=== PATIENT | female | born 1960 | race Caucasian/White ===

== ENCOUNTER 2018-08-18 05:18 | Inpatient (IN) | payer OTHER ==
[2018-08-18] MEDS ORDERED: TRANEXAMIC ACID 1GM/100ML(PMX) 100 ML INTRA-OP X1 IVPB (06:00)
[2018-08-18] MEDS ORDERED: ACETAMINOPHEN 500 MG TAB PO (06:00)
[2018-08-18] MEDS ORDERED: CEFAZOLIN 1 GM/50 ML (PMX) 50 ML IVPB (06:00)
[2018-08-18] MEDS ORDERED: DEXAMETHASONE 4 MG/ML 1 ML INJ IV (06:00)
[2018-08-18] MEDS ORDERED: TRANEXAMIC ACID 1GM/100ML(PMX) 100 ML PRE-OP X1 IVPB (06:00)
[2018-08-18] MEDS: LANSOPRAZOLE 30 MG CAP PO (06:28)
[2018-08-18] MEDS: oxyCODONE (CR) 10 MG TAB [oxyCONTIN] PO (06:29)
[2018-08-18] MEDS: ONDANSETRON 4 MG INJ IV ×4 (06:29→22:27)
[2018-08-18] MEDS: LACTATED RINGER'S 1,000 ML IV (06:30)
[2018-08-18] MEDS ORDERED: ACETAMINOPHEN 1000MG/100ML IV 100 ML IVPB (06:30)
[2018-08-18] MEDS ORDERED: HIP PAIN COCKTAIL VANCO INJ (07:00)
[2018-08-18] MEDS ORDERED: POLYMYXIN B 500000 UNIT INJ (07:11)
[2018-08-18] MEDS ORDERED: MIDAZOLAM 1 MG/ML 2 ML INJ (07:23)
[2018-08-18] MEDS ORDERED: DEXAMETHASONE 4 MG/ML 5 ML INJ (07:23)
[2018-08-18] MEDS ORDERED: GLYCOPYRROLATE 0.4 MG INJ (07:23)
[2018-08-18] MEDS ORDERED: FENTAnyl 50 MCG/ML VIAL (07:23)
[2018-08-18] MEDS ORDERED: PROPOFOL 20 ML (07:23)
[2018-08-18] MEDS ORDERED: ROCURONIUM 50 MG INJ (07:23)
[2018-08-18] MEDS ORDERED: NEOSTIGMINE 3 MG/3 ML SYRINGE (07:23)
[2018-08-18] MEDS ORDERED: CEFAZOLIN 1 GM INJ (07:23)
[2018-08-18] MEDS ORDERED: ONDANSETRON 4 MG INJ (07:23)
[2018-08-18] MEDS ORDERED: morphine SULFATE/PF (10 MG/10 ML) INJ (07:24)
[2018-08-18] MEDS ORDERED: HYDROmorphONE 0.5 MG/0.5 ML SYG IV ×2 (07:30)
[2018-08-18] MEDS ORDERED: DIPHENHYDRAMINE 50 MG INJ IV (07:30)
[2018-08-18] MEDS ORDERED: LABETALOL HCL 20MG INJ IV (07:30)
[2018-08-18] MEDS ORDERED: KETOROLAC 30 MG INJ IV (07:30)
[2018-08-18] MEDS ORDERED: ALBUTEROL 0.083% (NEB) 2.5 MG/3 ML AMP HHN (07:30)
[2018-08-18] MEDS ORDERED: TRIMETHOBENZAMIDE 100 MG/ML VIAL IM ×2 (07:30)
[2018-08-18] MEDS ORDERED: EPHEDrine 25 MG/5 ML SYG IV (07:30)
[2018-08-18] MEDS ORDERED: ONDANSETRON 4 MG INJ IV ×2 (07:30)
[2018-08-18] MEDS ORDERED: IPRATROPIUM (NEB) 0.5 MG/2.5 ML AMP HHN (07:30)
[2018-08-18] MEDS ORDERED: FENTAnyl 50 MCG/ML VIAL IV ×3 (07:30)
[2018-08-18] MEDS ORDERED: hydrALAzine 20 MG INJ IV (07:30)
[2018-08-18] MEDS ORDERED: ZOLPIDEM 5 MG TAB PO (07:30)
[2018-08-18] MEDS ORDERED: NALBUPHINE HCL (10 MG/1 ML) INJ IV (07:30)
[2018-08-18] MEDS ORDERED: HYDROmorphONE 1 MG/5 ML IV SYRINGE IV ×3 (07:30)
[2018-08-18] MEDS ORDERED: MEPERIDINE 25 MG INJ IV (07:30)
[2018-08-18] MEDS ORDERED: OXYCODONE/ACETAMINOPHEN (5/325) TAB PO ×2 (07:30)
[2018-08-18] MEDS ORDERED: NALOXONE (0.4 MG/ML) INJ IV ×2 (07:30→11:00)
[2018-08-18] MEDS ORDERED: MIDAZOLAM 1 MG/ML 2 ML INJ IV (07:30)
[2018-08-18] MEDS: POLYMYXIN B 500000 UNIT INJ IRR (08:27)
[2018-08-18] MEDS: BACITRACIN 50000 UNITS INJ (08:27)
[2018-08-18] MEDS ORDERED: MAGNESIUM HYDROXIDE 30ML CUP PO (11:00)
[2018-08-18] MEDS ORDERED: NA PHOSPHATE/BIPHOS 133 ML ENEMA PR (11:00)
[2018-08-18] MEDS ORDERED: SENNA/DOCUSATE NA (8.6MG/50MG) TAB PO (11:00)
[2018-08-18] MEDS ORDERED: NACL 0.9% 3 ML SYG IV (11:00)
[2018-08-18] MEDS ORDERED: BISACODYL 10 MG SUPP PR (11:00)
[2018-08-18] MEDS: DIPHENHYDRAMINE 50 MG INJ IV (11:10)
[2018-08-18] MEDS: ASPIRIN 81 MG TAB PO ×2 (11:10→21:37)
[2018-08-18] MEDS: CEFAZOLIN 2 GM/50 ML (PMX) 50 ML IVPB ×2 (11:10→18:34)
[2018-08-18] MEDS: DOCUSATE SODIUM 100 MG CAP PO (11:30)
[2018-08-18] MEDS: GABAPENTIN 100 MG CAP PO ×2 (14:22→21:37)
[2018-08-19] MEDS: CEFAZOLIN 2 GM/50 ML (PMX) 50 ML IVPB (02:52)
[2018-08-19] MEDS: ONDANSETRON 4 MG INJ IV (04:21)
[2018-08-19 05:25] LABS: ADD MAN DIFF? NO
[2018-08-19 05:31] LABS: HEMATOCRIT 27.5 % (37.0-47.0); HEMOGLOBIN 9.1 g/dl (12.0-16.0); LYMPHOCYTES % 13.3 % (15.0-51.0); MEAN CORPUSCULAR HEMOGLOBIN 29.5 pg (29.0-33.0); MEAN CORPUSCULAR HGB CONC 33.1 g/dl (32.0-37.0); MEAN CORPUSCULAR VOLUME 89.3 fl (82.0-101.0); MEAN PLATELET VOLUME 9.7 fl (7.4-10.4); MONOCYTE # 0.7 10^3/ul (0.3-0.9); MONOCYTES % 8.6 % (0.0-11.0); NEUTROPHIL # 5.9 10^3/ul (1.6-7.5); NEUTROPHILS % 77.8 % (39.0-77.0); PLATELET COUNT 200 10^3/UL (140-415); RED BLOOD COUNT 3.08 10^6/ul (4.20-5.40); RED CELL DISTRIBUTION WIDTH 13.4 % (11.5-14.5)
[2018-08-19 05:31] LABS: WHITE BLOOD COUNT 7.6 10^3/ul (4.8-10.8)
[2018-08-19 05:47] LABS: INR 1.05; PROTIME 13.8 Sec (11.9-14.9); PT RATIO 1.1
[2018-08-19 06:03] LABS: ANION GAP 2 (5-13); BLOOD UREA NITROGEN 25 mg/dl (7-20); CALCIUM 8.1 mg/dl (8.4-10.2); CARBON DIOXIDE 30 mmol/L (21-31); CHLORIDE 104 mmol/L (97-110); CREATININE 0.86 mg/dl (0.44-1.00); Estimated GFR > 60 mL/min (>60); GLUCOSE 115 mg/dl (70-220); POTASSIUM 4.3 mmol/L (3.5-5.1); SODIUM 136 mmol/L (135-144)
[2018-08-19] MEDS: PANTOPRAZOLE (EC) 40 MG TAB PO (06:14)
[2018-08-19] MEDS: CELECOXIB 100 MG CAP PO (09:07)
[2018-08-19] MEDS: DOCUSATE SODIUM 100 MG CAP PO (09:07)
[2018-08-19] MEDS: GABAPENTIN 100 MG CAP PO ×2 (09:08→13:04)
[2018-08-19] MEDS: oxyCODONE 5 MG TAB PO ×3 (09:08→16:37)
[2018-08-19] MEDS: ASPIRIN 81 MG TAB PO (09:13)
[2018-08-19] MEDS: KETOROLAC 15 MG INJ IV (11:26)
== END 2018-08-19 16:40 | disposition home health service (06) | DRG 470 ==
LOC: REC 05:18 → MS1 11:35
PROC: 0SR904A Replacement of Right Hip Joint with Ceramic on Polyethylene Synthetic Substitute, Uncemented, Open Approach (ICD-10-PCS; principal; 2018-08-18 07:26)
DX: M16.11 Unilateral primary osteoarthritis, right hip (principal)
CPT/HCPCS: 72170; 73500; 73530; 80048; 85025; 85610; 86850; 86900; 86901; 88304; 88311; 97116; 97162; 97167; 97530; 97535; 99217